=== PATIENT | female | born 1955 | race Caucasian/White ===

== ENCOUNTER 2018-01-10 04:18 | Inpatient (IN) | payer BC ==
[~2018-01-10] VITALS: Ht 170.2 cm; Wt 84.9 kg
[2018-01-10 04:58] LABS: HEMATOCRIT 38.8 % (36.0-46.0); HEMOGLOBIN 13.6 G/DL (11.9-15.5); MCH 31.9 PG (29.0-34.0); MCHC 35.1 G/DL (30.0-36.0); MCV 90.9 FL (83-99); PLATELET COUNT 180 K/uL (156-360); RBC DIS.WIDTH-CV 12.7 % (11.8-14.6); RBC DIS.WIDTH-SD 42.2 % (39-53); RED BLOOD COUNT 4.27 M/uL (3.80-5.20)
[2018-01-10 05:08] LABS: D-DIMER ELISA < 150.00 ng/mLDDU (<230)
[2018-01-10 05:09] LABS: PTT 28.2 SEC (25-37)
[2018-01-10 05:14] LABS: ALBUMIN 4.2 g/dL (3.2-4.8); CHLORIDE 108 mEq/L (99-109); POTASSIUM 3.5 mEq/L (3.7-5.4); SODIUM 142 mEq/L (136-147)
[2018-01-10 05:15] LABS: MAGNESIUM 2.1 mg/dL (1.3-2.7)
[2018-01-10 05:17] LABS: GLUCOSE 113 mg/dL (70-99); TOTAL PROTEIN 6.5 g/dL (6.4-8.3)
[2018-01-10 05:19] LABS: TOTAL BILIRUBIN 0.3 mg/dL (0.0-1.0)
[2018-01-10 05:20] LABS: ALKALINE PHOSPHATASE 81 IU/L (3-129)
[2018-01-10 05:21] LABS: CREATININE 0.8 mg/dL (0.6-1.3); GFR ESTIMATE (CALCULATED) > 59 mL/min/
[2018-01-10 05:22] LABS: AST (GOT) 12 IU/L (2-34); UREA NITROGEN (BUN) 15 mg/dL (9-23)
[2018-01-10 05:24] LABS: ALT (GPT) 9 IU/L (3-49); LIPASE 41 U/L (1.0-51.0)
[2018-01-10 05:30] LABS: TROP-I INTERPRETATION NEGATIVE; TROPONIN-I < 0.01 ng/mL (0.0-0.30)
[2018-01-10 08:28] LABS: THYROTROPIN (TSH) 6.2 MIU/L (0.4-5.5)
[2018-01-10 09:52] VITALS: BP 162/79
[2018-01-10 11:41] VITALS: BP 169/76
[2018-01-10 11:45] LABS: TROP-I INTERPRETATION NEGATIVE; TROPONIN-I 0.02 ng/mL (0.0-0.30)
[2018-01-10] MEDS ORDERED: HYZAAR 100-11 TABLET PO (13:18)
[2018-01-10] MEDS ORDERED: CALTRATE 600 +1 EAC1 PO (13:22)
[2018-01-10] MEDS ORDERED: ADVIL200 MG PO (13:23)
[2018-01-10] MEDS ORDERED: ATIVAN0.5 MG PO (13:24)
[2018-01-10 14:38] VITALS: BP 176/86
[2018-01-10 17:56] LABS: TROP-I INTERPRETATION NEGATIVE; TROPONIN-I 0.02 ng/mL (0.0-0.30)
[2018-01-10 18:53] VITALS: BP 167/74
[2018-01-10 22:55] VITALS: BP 145/78
[2018-01-11 03:30] VITALS: BP 160/78; BP 176/82
[2018-01-11 06:00] LABS: CHLORIDE 105 MEQ/L (99-109); CREATININE 0.8 MG/DL (0.6-1.3); GFR ESTIMATE (CALCULATED) > 59 mL/min/; GLUCOSE 94 mg/dL (70-99); HDL CHOLESTEROL 39 MG/DL (Desirable>=50); LDL CHOLESTEROL 85 mg/dL (Desirable<100); NON-HDL CHOLESTEROL 98 mg/dL (Desirable<160); SODIUM 142 MEQ/L (136-147); TOTAL CHOLESTEROL 137 mg/dL (Desirable<200); TRIGLYCERIDES 65 MG/DL (Normal: <150); UREA NITROGEN (BUN) 14 mg/dL (9-23)
[2018-01-11 06:03] LABS: POTASSIUM 4.4 MEQ/L (3.7-5.4)
[2018-01-11 09:49] VITALS: BP 162/78
[2018-01-11] MEDS ORDERED: ELIQUIS5 MG PO (10:00)
[2018-01-11] MEDS ORDERED: METOPROLOL SUCC50 MG PO (10:02)
[2018-01-11 11:36] VITALS: BP 158/72
== END 2018-01-11 12:09 | disposition home or self-care (01) | DRG 310 ==
LOC: EME → EDBD 04:18 → EME 04:18 → 4EAST 07:46 → EDOF 07:46 → ENRESERV 07:47 → 4EAST 09:42
PROVIDERS: Emergency Medicine; Internal Medicine
DX: I48.0 Paroxysmal atrial fibrillation (principal); R07.9 Chest pain, unspecified; I10 Essential (primary) hypertension; E78.5 Hyperlipidemia, unspecified; F17.200 Nicotine dependence, unspecified, uncomplicated; Z90.710 Acquired absence of both cervix and uterus
CPT/HCPCS: 71045; 80048; 80053; 80061; 83036; 83690; 83735; 84439; 84443; 84484; 85027; 85379; 85610; 85730; 93005; 93306; 99281; 99285; J1160; J1650; J7030